=== PATIENT | female | born 1955 | race Caucasian/White ===

== ENCOUNTER 2017-08-17 20:13 | Emergency (ER) | payer MEDICARE, OTHER ==
--- NOTE | 2017-08-17 20:35 | ED Physician Documentation ---
General Adult - HISTORIAN Historian: patient - HPI Chief Complaint: General Adult Additional Information: 6 Days ago started to develop some nasal drainage, has been slighly bloody; cough, productive of some green phlegm; no wheeezing SOB or chest pain. Has developed a sore throat that seems to be getting worse. Has had a mild fever and achiness. Onset: days ago (6 days) Timing: still present Further Comments: no - ROS CONST: fever. denies: chills EYES/ENT: none CVS/RESP: cough GI/: none MS/SKIN/LYMPH: joint pain (mild) NEURO/PSYCH: denies: headache - PAST HX Past History: hypertension Other History: diabetes Type 2 Immunizations: UTD Allergies/Adverse Reactions: Allergies Allergy/AdvReac Type Severity Reaction Status Date / Time No Known Drug Allergies Allergy Verified 08/17/17 20:26 - SOCIAL HX Smoking History: non-smoker Alcohol Use: none Drug Use: none - FAMILY HX Family History: No - REVIEWED ASSESSMENTS Nursing Assessment Reviewed: Yes Vitals Reviewed: Yes ED Results Lab/Radiology - Lab Results Lab Results: Rapid strep negative General Adult Physical Exam - PHYSICAL EXAM GENERAL APPEARANCE: mild distress EENT: eye inspection normal, ENT inspection normal, pharyngeal erythema (no exudate) NECK: normal inspection, thyroid normal, supple RESPIRATORY: no resp distress, chest non-tender, breath sounds normal. No: wheezes, rales, rhonchi CVS: reg rate & rhythm, heart sounds normal, equal pulses, no murmur SKIN: warm/dry, normal color EXTREMITIES: no edema NEURO: oriented X3, mood/affect nml, cognition normal Discharge Clincal Impression: Pharyngitis Referrals: Danny Nelson PA [Primary Care Provider] - 2 Days Additional Instructions: Drink a lot of fluids, gargle with salt water or suck on a throat lozenge. If symptoms do not improve in 3 days to follow-up with your primary care provider. or return to the ED. Condition: Stable Disposition: HOME, SELF-CARE Decision to Admit: NO Date of Decison to Admit: 08/17/17 Decision Time: 21:02
[2017-08-17 21:17] VITALS: BP 166/72
== END 2017-08-17 21:10 | disposition home or self-care (01) ==
LOC: ED 20:13
DX: J02.9 Acute pharyngitis, unspecified (principal)
CPT/HCPCS: 87070; 87880; 99282

== ENCOUNTER 2017-11-21 09:23 | Outpatient (CLI) | payer MEDICARE, MEDICAID ==
[2017-11-21 10:07] LABS: eGFR (African) > 60; eGFR (Non-African) > 60
== END 2017-11-21 09:24 ==
LOC: LAB 09:23
PROVIDERS: ATTEND Family Medicine
DX: E11.9 Type 2 diabetes mellitus without complications (principal); I10 Essential (primary) hypertension
CPT/HCPCS: 36415; 80053; 80061; 82043; 83036